=== PATIENT | female | born 1955 | race Caucasian/White ===

== ENCOUNTER 2016-10-23 22:09 | Emergency (ER) | payer BC ==
[~2016-10-23] VITALS: Ht 170.2 cm; Wt 63.5 kg
[2016-10-23] MEDS ORDERED: TOPROL XL50 MG PO (22:34)
[2016-10-23] MEDS ORDERED: LEVOXYL150 MC1 PO (22:34)
[2016-10-23] MEDS ORDERED: LIPITOR40 MG PO (22:34)
--- NOTE | 2016-10-23 22:43 | NUR ---
CT machine down for technical issues. [facility] called for transportation to [facility] for CT scan. ETA 30 min.
[2016-10-23] MEDS ORDERED: IV NORMAL SALINE 1000 ML BAG IV ONE (22:45)
[2016-10-23] MEDS ORDERED: ONDANSETRON 4 MG/2 ML VIAL ONE (23:13)
[2016-10-23] MEDS: ONDANSETRON IV *ER 4 MG/2 ML VIAL IV ONE ×2 (23:14→23:21)
--- NOTE | 2016-10-23 23:27 | NUR ---
[facility] arrived, transporting patient to [facility] for CT scan.
--- NOTE | 2016-10-24 00:19 | NUR ---
Patient returned from [facility], CT scan completed, patient states she has mild pain (4/10) but states she has no other concerns at this time. [facility] notified.
[2016-10-24] MEDS ORDERED: DICYCLOMINE HCL 10 MG/5 ML UDC LIQ PO ONE (01:45)
[2016-10-24] MEDS ORDERED: DICYCLOMINE HCL 10 MG/5 ML UDC LIQ ONE ×2 (01:46→01:47)
--- NOTE | 2016-10-24 02:20 | NUR ---
Patient discharged to home in stable conditon. Written and verbal after care instructions given. Patient verbalizes understanding of instructions.
== END 2016-10-24 02:20 | disposition home or self-care (01) ==
LOC: ER 22:09
DX: R10.9 Unspecified abdominal pain (principal); I10 Essential (primary) hypertension; Z88.0 Allergy status to penicillin
CPT/HCPCS: 36415; 74176; 76856; 80048; 80076; 81001 ×2; 83690; 85025; 93005; 96361; 96374; 99285; A4663; J2405; J7030